=== PATIENT | female | born 1955 | race Caucasian/White ===

== ENCOUNTER → 2017-03-28 | Outpatient (CLI) | payer OTHER | LOC: CIMAGING 07:27 | PROVIDERS: ATTEND Family Medicine | DX: Z12.31 Encounter for screening mammogram for malignant neoplasm of breast (principal); L29.9 Pruritus, unspecified | CPT/HCPCS: G0202 ==

== ENCOUNTER → 2017-04-30 | Outpatient (CLI) | payer OTHER | LOC: FLAB 13:41 | PROVIDERS: ATTEND Family Medicine | DX: M46.96 Unspecified inflammatory spondylopathy, lumbar region (principal); M46.97 Unspecified inflammatory spondylopathy, lumbosacral region; M43.16 Spondylolisthesis, lumbar region ==

== ENCOUNTER → 2017-05-09 | Outpatient (CLI) | payer OTHER | LOC: BRMIMAGING 08:37 | PROVIDERS: ATTEND Family Medicine | DX: Z13.820 Encounter for screening for osteoporosis (principal); M85.80 Other specified disorders of bone density and structure, unspecified site; M16.11 Unilateral primary osteoarthritis, right hip ==

== ENCOUNTER → 2017-07-30 | Outpatient (CLI) | payer OTHER ==
[~2017-07-30] MED LIST: IOPAMIDOL (ISOVUE 370) 100 ML BTL IV ONE
== END ==
LOC: FIMAGING 08:23
PROVIDERS: ATTEND Internal Medicine Interventional Cardiology
DX: I71.2 Thoracic aortic aneurysm, without rupture (principal); Q23.1 Congenital insufficiency of aortic valve
CPT/HCPCS: Q9967

== ENCOUNTER → 2018-04-08 | Outpatient (CLI) | payer OTHER | LOC: CIMAGING 08:00 | PROVIDERS: ATTEND Family Medicine | DX: Z12.31 Encounter for screening mammogram for malignant neoplasm of breast (principal) ==